=== PATIENT | female | born 1955 | race Caucasian/White ===

== ENCOUNTER 2018-03-13 11:21 | Emergency (ER) | payer BC, OTHER ==
[2018-03-13 12:04] LABS: Absolute Lymphocytes (CBC) 2.4 K/uL (0.7-4.9); Absolute Monocytes 0.5 K/uL (0.1-1.3); Absolute Neutrophil 4.3 K/uL (1.8-8.0); Basophils % 1.2 % (0-1.3); Eosinophils % 2.1 % (0-4.4); Hematocrit 41.4 % (36.0-45.0); Lymphocytes % 31.9 % (15.3-44.8); MCH 32.6 pg (27.0-35.0); MCV 96.6 fL (80-100); MPV 9.9 fL (7.6-11.3); Monocytes % 7.2 % (3.3-12.3); RBC Red Blood Cell Count 4.29 M/uL (3.86-4.86)
--- NOTE | 2018-03-13 12:08 | RAD REPORT ---
EXAM DESCRIPTION: CT - Ct Stroke Brain Wo Cont - 03/13/2018 11:49 am CLINICAL HISTORY: Left-sided numbness/weakness COMPARISON: None. TECHNIQUE: Computed axial tomography of the head was obtained. IV contrast was not requested. All CT scans are performed using dose optimization technique as appropriate and may include automated exposure control or mA/KV adjustment according to patient size. FINDINGS: An intracranial bleed is not seen . The ventricles are normal in caliber. No extra-axial fluid collection is noted. A 5 millimeter low-density area is present within the region of the inferior right basal ganglia. Fluid within the sinuses/ mastoids is not seen. IMPRESSION: 5 millimeter low-density area within the region of the inferior right basal ganglia comp atible with an acute/ subacute infarct. The exam was discussed with Clovis Dillard in the emergency room approximately 12:50 p.m. March 13 8
[2018-03-13 12:13] LABS: Protime INR 1.06
--- NOTE | 2018-03-13 12:24 | RAD REPORT ---
EXAM DESCRIPTION: Jeff Single View03/13/2018 12:15 pm CLINICAL HISTORY: Code stroke/CVA COMPARISON: none FINDINGS: The lungs appear clear of acute infiltrate. The heart is normal size IMPRESSION: No acute abnormalities displayed
[2018-03-13 12:29] LABS: Albumin 4.4 g/dL (3.4-5.0); Bilirubin Direct 0.2 mg/dL (0-0.2); Bilirubin Total 0.6 mg/dL (0.2-1.0); Magnesium 2.2 mg/dL (1.8-2.4); Potassium 3.6 mmol/L (3.5-5.1); Protein, Total 7.7 g/dL (6.4-8.2)
--- NOTE | 2018-03-13 12:56 | RAD REPORT ---
EXAM DESCRIPTION: MRI - Brain Wo Cont - 03/13/2018 12:46 pm CLINICAL HISTORY: Left-sided numbness/weakness COMPARISON: March [address] TECHNIQUE: Axial, sagittal, and coronal magnetic images of the brain were obtained. Contrast was not requested FINDINGS: Small area of increased signal within the inferior right basal ganglia likely either repre sents an old lacunar infarct her prominent Virchow-Jan space. A few small areas increased signal within deep and subcortical white matter likely represent ischemic changes secondary to small vessel disease Diffusion-weighted/ADC mapping does not reveal evidence of acute infarction. The ventricles are normal caliber. An extra-axial fluid collection is not present Fluid within the sinuses/mastoids is not seen. A mucus retention cyst is present within the left maxi llary sinus IMPRESSION: No acute intracranial abnormality is noted.
[2018-03-13 12:58] LABS: Urine Blood NEGATIVE (NEG); Urine Glucose NEGATIVE (NEG); Urine Protein NEGATIVE (NEG); Urine Specific Gravity 1.015 (1.005-1.030); Urine pH 7.5 (5.0-7.0)
[2018-03-13] MEDS ORDERED: LORazepam 2 MG/ML VIAL ONE (13:21)
[2018-03-13] MEDS ORDERED: METOPROLOL TARTRATE 5 MG/5 ML INJ IV ONE (13:26)
[2018-03-13] MEDS ORDERED: LABETALOL 20 MG/4ML SYRINGE IV ONE (13:28)
--- NOTE | 2018-03-13 13:39 | EKG ---
Test Date: 2018-03-13 Test Time: 12:10:29 Licensed Occupational Therapy Assistant: CHUNG MEASUREMENT RESULTS: Intervals: Rate: 86 DE: 230 QRSD: 160 QT: 410 QTc: 490 [place]: P: 44 DE: 230 QRS: -49 T: -23 INTERPRETIVE STATEMENTS: Sinus rhythm with 1st degree AV block Right bundle branch block Left anterior fascicular block Bifascicular block Minimal voltage criteria for LVH, may be normal variant Abnormal ECG No previous ECG available for comparison Electronically Signed On 03-13-18 13:38:15 CDT by David Sanchez
--- NOTE | 2018-03-13 14:04 | ER ---
Nurse's Notes [facility] Name: Mohini Ramirez Age: 62 yrs Sex: Female : 1955 Arrival Date: 03/13/2018 Time: 11:25 Bed 16 Private MD: Leydi Garcia Diagnosis: Hypertensive Emergency Presentation: 03/13 11:25 Presenting complaint: Patient states: i had a stroke episode 3 weeks ago, with numbness hj and weakness on L arm; we didn't do TPA because we didn't know the time i had the symptome; today, i felt lightheaded and started having numbness and tingling on L arm, no weakness; both ears are on fire; this started about 30 mins ago; reports chest pain and palpitations;. Transition of care: patient was not received from another setting of care. Onset of symptoms was March 13, 2018 at 11:00. Risk Assessment: Do you want to hurt yourself or someone else? Patient reports no desire to harm self or others. Initial Sepsis Screen: Does the patient meet any 2 criteria? No. Patient's initial sepsis screen is negative. Does the patient have a suspected source of infection? No. Patient's initial sepsis screen is negative. Care prior to arrival: None. 11:25 Method Of Arrival: Ambulatory 11:25 Acuity: BALJIT 3 hj Triage Assessment: 11:30 General: Appears in no apparent distress. uncomfortable, Behavior is calm, cooperative, hj appropriate for age. Pain: Denies pain. Historical: - Allergies: 11:30 Sulfa (Sulfonamide Antibiotics); hj - Home Meds: 11:30 Plavix 75 mg Oral tab 1 tab once daily [Active]; Lipitor 40 mg Oral tab 1 tab once hj daily [Active]; aspirin 81 mg Oral TbEC 1 tab once daily [Active]; levothyroxine 25 mcg tab 1 tab once daily [Active]; - PMHx: 11:30 CVA; Hypothyroidism; Hyperlipidemia; hj - PSHx: 11:30 Knee surgery; hj - Immunization history:: Adult Immunizations up to date. - Social history:: Smoking status: Patient/guardian denies using tobacco, Patient/guardian denies using alcohol. - Ebola Screening: : Patient negative for fever greater than or equal to 101.5 degrees Fahrenheit, and additional compatible Ebola Virus Disease symptoms Patient denies exposure to infectious person Patient denies travel to an Ebola-affected area in the 21 days before illness onset. Screenin:31 Abuse screen: Denies threats or abuse. Denies injuries from another. Nutritional hj screening: No deficits noted. Tuberculosis screening: No symptoms or risk factors identified. Fall Risk None identified. 11:48 The patient has not been NPO before screening. The patient is alert, able to follow la1 commands. The patient does not exhibit slurred or garbled speech The patient is not exhibiting difficulty speaking. The patient does not exhibit difficulty understanding words. The patient is able to swallow own secretions with no drooling or need for suction. Patient tolerated one teaspoon of water. No drooling, immediate coughing, gurgling, or clearing of the throat was noted. The patient tolerated 90mL of water. No drooling, immediate coughing, gurgling, or clearing of the throat was noted. The patient passed the bedside swallow screening. Oral medications may be given as ordered. Contact Physician for further diet orders. Provider notified of bedside swallow screening results: Anmol HERNANDEZ. Assessment: 11:38 Reassessment: pt in CT. la1 11:49 General: Appears in no apparent distress. comfortable, Behavior is cooperative, la1 anxious. Pain: Denies pain. Neuro: Level of Consciousness is awake, alert, obeys commands, Oriented to person, place, time, situation, Appropriate for age Database Manager are equal bilaterally Moves all extremities. Full function. Cardiovascular: Heart tones S1 S2 present Capillary refill < 3 seconds Patient's skin is warm and dry. Respiratory: Airway is patent Respiratory effort is even, unlabored, Respiratory pattern is regular, symmetrical, Breath sounds are clear bilaterally. GI: No signs and/or symptoms were reported involving the gastrointestinal system. : No signs and/or symptoms were reported regarding the genitourinary system. Musculoskeletal: Circulation, motion, and sensation intact. Capillary refill < 3 seconds, Range of motion: intact in all extremities. 12:18 Reassessment: Patient appears in no apparent distress at this time. No changes from la1 previously documented assessment. Patient and/or family updated on plan of care and expected duration. Pain level reassessed. 13:37 Reassessment: Patient appears in no apparent distress at this time. No changes from la1 previously documented assessment. Patient and/or family updated on plan of care and expected duration. Pain level reassessed. 14:08 Reassessment: Patient appears in no apparent distress at this time. No changes from la1 previously documented assessment. Patient and/or family updated on plan of care and expected duration. Pain level reassessed. Vital Signs: 11:31 BP 181 / 90; Pulse 108; Resp 18; Temp 98.1(O); Pulse Ox 100% on R/A; Weight 79.38 kg; hj Height 5 ft. 7 in. (170.18 cm); Pain 0/10; 12:18 BP 156 / 70; Pulse 85; Resp 16; Pulse Ox 100% on R/A; la1 13:36 BP 156 / 72; Pulse 75; Resp 19; Pulse Ox 100% on R/A; la1 14:08 BP 151 / 74; Pulse 74; Resp 19; Pulse Ox 100% on R/A; la1 11:31 Body Mass Index 27.41 (79.38 kg, 170.18 cm) hj NIH Stroke Scale Scores: 11:30 NIHSS Score: 0 jr8 11:47 NIHSS Score: 0 la1 ED Course: 11:25 Patient arrived in ED. sb2 11:25 Leydi Garcia MD is Private Physician. sb2 11:28 Triage completed. hj 11:31 Arm band placed on left wrist. hj 11:31 Patient has correct armband on for positive identification. Placed in gown. Bed in low hj position. Call light in reach. Side rails up X 1. Adult w/ patient. 11:33 [facility] jr8 11:33 Ferdinand Gaona MD is Attending Physician. jr8 11:36 Armen Gutierrez, GISELL is Primary Nurse. la1 11:47 No provider procedures requiring assistance completed. Inserted saline lock: 22 gauge la1 in left antecubital area, using aseptic technique. Blood collected. 11:49 CT Stroke Brain w/o Contrast In Process Unspecified. EDMS 12:15 Stroke CXR 1 View In Process Unspecified. EDMS 12:30 EKG done, by technology engineer. reviewed by Anmol HERNANDEZ. at1 12:34 Patient moved to MRI via wheelchair. ka 12:36 MRI - Brain Wo Cont In Process Unspecified. EDMS 12:58 MRI completed. Patient tolerated well. Patient moved back from MRI. em2 14:22 IV discontinued, intact, bleeding controlled, No redness/swelling at site. Pressure la1 dressing applied. Administered Medications: 13:36 Drug: Ativan 0.5 mg Route: IVP; Site: left antecubital; la1 14:09 Follow up: Response: No adverse reaction la1 13:37 Drug: Labetalol 5 mg Route: IVP; Infused Over: 2 mins; Site: left antecubital; la1 14:09 Follow up: Response: No adverse reaction; Blood pressure is lowered la1 Point of Care Testing: Blood Glucose: 11:42 Blood Glucose: 111 mg/dL; la1 Ranges: Outcome: 14:04 Discharge ordered by jrBrian 14:22 Discharged to home ambulatory. la1 14:22 Condition: stable 14:22 Discharge instructions given to patient, Instructed on discharge instructions, follow up and referral plans. Demonstrated understanding of instructions, follow-up care. 14:22 Patient left the ED. la1 NIH Stroke Scale - NIH Stroke Score Date: 03/13/2018 Time: 11:30 Total Score = 0 1a. Level of Consciousness (LOC) - 0(Alert) 1b. Level of Consciousness (LOC) (Year \T\ Age) - 0(Both) 1c. LOC Commands (Open \T\ Closes Eyes/Cable Television Access Coordinator) - 0(Both) 2. Best Gaze (Lateral Gaze Paresis) - 0(Normal) 3. Visual Field Loss - 0(No visual loss) 4. Facial Palsy - 0(Normal) 5a. Left Arm: Motor (10-second hold) - 0(No drift) 5b. Right Arm: Motor (10-second hold) - 0(No drift) 6a. Left Leg: Motor (5-second hold - always test supine) - 0(No drift) 6b. Right Leg: Motor (5-second hold - always test supine) - 0(No drift) 7. Limb Ataxia (finger/nose \T\ heel/malhotra - test with eyes open) - 0(Absent) 8. Sensory Loss (pinprick arms/legs/face) - 0(Normal) 9. Best Language: Aphasia (description/naming/reading) - 0(No aphasia) 10. Dysarthria (speech clarity - read or repeat words) - 0(Normal) 11. Extinction and Inattention (visual/tactile/auditory/spatial/personal) - 0(No abnormality) Initials: jr8 NIH Stroke Scale - NIH Stroke Score Date: 03/13/2018 Time: 11:47 Total Score = 0 1a. Level of Consciousness (LOC) - 0(Alert) 1b. Level of Consciousness (LOC) (Year \T\ Age) - 0(Both) 1c. LOC Commands (Open \T\ Closes Eyes/Cable Television Access Coordinator) - 0(Both) 2. Best Gaze (Lateral Gaze Paresis) - 0(Normal) 3. Visual Field Loss - 0(No visual loss) 4. Facial Palsy - 0(Normal) 5a. Left Arm: Motor (10-second hold) - 0(No drift) 5b. Right Arm: Motor (10-second hold) - 0(No drift) 6a. Left Leg: Motor (5-second hold - always test supine) - 0(No drift) 6b. Right Leg: Motor (5-second hold - always test supine) - 0(No drift) 7. Limb Ataxia (finger/nose \T\ heel/malhotra - test with eyes open) - 0(Absent) 8. Sensory Loss (pinprick arms/legs/face) - 0(Normal) 9. Best Language: Aphasia (description/naming/reading) - 0(No aphasia) 10. Dysarthria (speech clarity - read or repeat words) - 0(Normal) 11. Extinction and Inattention (visual/tactile/auditory/spatial/personal) - 0(No abnormality) Initials: la1 Signatures: Dispatcher [employer] EDMS Anmol Arzate PA PA jr8 Tyshawn Marcano em2 Kay schreiber, aircraft captain EKG Tat1 Armen Gutierrez RN RN la1 Matthew Brooks, Yesenia Tariq RN, Sheri sb2
--- NOTE | 2018-03-13 14:04 | EDPHYS ---
Physician Documentation [facility] Name: Mohini Ramirez Age: 62 yrs Sex: Female : 1955 Arrival Date: 03/13/2018 Time: 11:25 Bed 16 Private MD: Leydi Garcia ED Physician Ferdinand Gaona HPI: 03/13 11:30 This 62 yrs old Female presents to ER via Ambulatory with complaints of S/S jr8 of Possible Stroke. 11:30 The patient's problem is reported as paresthesias, in left upper extremity. Onset: The jr8 symptoms/episode began/occurred at 11:00. Duration: This was a single incident. Context: occurred at a store. The symptoms are alleviated by nothing. The symptoms are aggravated by nothing. Associated signs and symptoms: Pertinent positives: dizziness. Severity of symptoms: At their worst the symptoms were moderate in the emergency department the symptoms have improved. Patient's baseline: Neuro: alert and fully oriented, Motor: no deficits, Ambulation: walks without assistance, Speech: normal. The patient has experienced a previous episode. The patient has been recently seen by a physician:. Patient stated that she had confirmed stroke 3 weeks ago. Was seen at [facility]. Had recovered very well from incident. While driving started to feel dizzy and had left arm numbness which she had the last time. Stopped at store to see if she would feel better but did not so came straight to ED . Historical: - Allergies: 11:30 Sulfa (Sulfonamide Antibiotics); hj - Home Meds: 11:30 Plavix 75 mg Oral tab 1 tab once daily [Active]; Lipitor 40 mg Oral tab 1 tab once hj daily [Active]; aspirin 81 mg Oral TbEC 1 tab once daily [Active]; levothyroxine 25 mcg tab 1 tab once daily [Active]; - PMHx: 11:30 CVA; Hypothyroidism; Hyperlipidemia; hj - PSHx: 11:30 Knee surgery; hj - Immunization history:: Adult Immunizations up to date. - Social history:: Smoking status: Patient/guardian denies using tobacco, Patient/guardian denies using alcohol. - Ebola Screening: : Patient negative for fever greater than or equal to 101.5 degrees Fahrenheit, and additional compatible Ebola Virus Disease symptoms Patient denies exposure to infectious person Patient denies travel to an Ebola-affected area in the 21 days before illness onset. ROS: 11:30 Eyes: Negative for injury, pain, redness, and discharge, ENT: Negative for injury, jr8 pain, and discharge, Neck: Negative for injury, pain, and swelling, Cardiovascular: Negative for chest pain, palpitations, and edema, Respiratory: Negative for shortness of breath, cough, wheezing, and pleuritic chest pain, Abdomen/GI: Negative for abdominal pain, nausea, vomiting, diarrhea, and constipation, Back: Negative for injury and pain, MS/Extremity: Negative for injury and deformity, Skin: Negative for injury, rash, and discoloration. 11:30 Neuro: Positive for dizziness, numbness. Exam: 11:30 Radiologist reports: subacute noted on CT. No new acute findings jr8 11:30 Eyes: Pupils equal round and reactive to light, extra-ocular motions intact. Lids and lashes normal. Conjunctiva and sclera are non-icteric and not injected. Cornea within normal limits. Periorbital areas with no swelling, redness, or edema. ENT: Nares patent. No nasal discharge, no septal abnormalities noted. Tympanic membranes are normal and external auditory canals are clear. Oropharynx with no redness, swelling, or masses, exudates, or evidence of obstruction, uvula midline. Mucous membranes moist. Neck: Trachea midline, no thyromegaly or masses palpated, and no cervical lymphadenopathy. Supple, full range of motion without nuchal rigidity, or vertebral point tenderness. No Meningismus. Chest/axilla: Normal chest wall appearance and motion. Nontender with no deformity. No lesions are appreciated. Cardiovascular: Regular rate and rhythm with a normal S1 and S2. No gallops, murmurs, or rubs. Normal PMI, no JVD. No pulse deficits. Respiratory: Lungs have equal breath sounds bilaterally, clear to auscultation and percussion. No rales, rhonchi or wheezes noted. No increased work of breathing, no retractions or nasal flaring. Abdomen/GI: Soft, non-tender, with normal bowel sounds. No distension or tympany. No guarding or rebound. No evidence of tenderness throughout. Back: No spinal tenderness. No costovertebral tenderness. Full range of motion. Skin: Warm, dry with normal turgor. Normal color with no rashes, no lesions, and no evidence of cellulitis. MS/ Extremity: Pulses equal, no cyanosis. Neurovascular intact. Full, normal range of motion. 11:30 Neuro: Orientation: to person, place \T\ time. Mentation: is normal, Memory: is normal, immediate memory is intact, recent memory is intact, remote memory is intact, Cranial nerves: CN I not tested, CN II- XII are normal as tested, visual zee are intact. extraocular movements are intact, Facial palsy and sensory deficits are absent. Nystagmus is absent. Speech is clear and appropriate. Tongue strength is normal, Cerebellar function: normal finger to nose testing, heel to malhotra testing is normal, Motor: moves all fours, strength is 5/5 in all extremities, Sensation: tingling, that is mild, of the left face, Gait: not tested. seizure activity, is not displayed by the patient, Abnormal movements: there are no abnormal movements. Vital Signs: 11:31 BP 181 / 90; Pulse 108; Resp 18; Temp 98.1(O); Pulse Ox 100% on R/A; Weight 79.38 kg; Height 5 ft. 7 in. (170.18 cm); Pain 0/10; 12:18 BP 156 / 70; Pulse 85; Resp 16; Pulse Ox 100% on R/A; la1 13:36 BP 156 / 72; Pulse 75; Resp 19; Pulse Ox 100% on R/A; la1 14:08 BP 151 / 74; Pulse 74; Resp 19; Pulse Ox 100% on R/A; la1 11:31 Body Mass Index 27.41 (79.38 kg, 170.18 cm) NIH Stroke Scale Scores: 11:30 NIHSS Score: 0 jr8 11:47 NIHSS Score: 0 la1 MDM: 11:34 Patient medically screened. jr8 12:15 ED course: Patient with improvement of symptoms. Recent subacute stroke on CT. Patient jr8 not a candidate for tPA. . 14:00 Data reviewed: vital signs, nurses notes, lab test result(s), EKG, radiologic studies, jr8 CT scan, MRI, plain films. Data interpreted: Pulse oximetry: on room air is 100 %. Interpretation: normal. Counseling: I had a detailed discussion with the patient and/or guardian regarding: the historical points, exam findings, and any diagnostic results supporting the discharge/admit diagnosis, lab results, radiology results, the need for outpatient follow up, a neurologist, to return to the emergency department if symptoms worsen or persist or if there are any questions or concerns that arise at home. ED course: Patient has symptom resolution after being medicated. Differential TIA vs hypertensive emergency. No acute stroke on CT or MRI. Patient on ASA, Plavix, and Statin therapy and has been sikh with taking her medications. Patient has f/u with her neurologist on Friday. Wants to go home. Discussed risks with patient but still wants to f/u. Will d/c home with return precautions. I have also discussed with patient that she needs to check her BP twice a day as well since it was markedly elevated and she has no BP history . 03/13 11:40 Order name: Hepatic Function; Complete Time: 12:03/13 11:40 Order name: Troponin (emerg Dept Use Only); Complete Time: 12:03/13 11:40 Order name: Magnesium; Complete Time: 12:03/13 11:40 Order name: Basic Metabolic Panel; Complete Time: 12:03/13 11:40 Order name: CBC with Diff; Complete Time: 12:03/13 11:40 Order name: Protime (+inr); Complete Time: 12:03/13 11:40 Order name: Ptt, Activated; Complete Time: 12:03/13 11:40 Order name: CT Stroke Brain w/o Contrast; Complete Time: 12:16 03/13 11:40 Order name: Stroke CXR 1 View; Complete Time: 12:31 03/13 11:40 Order name: EKG; Complete Time: 11:40 03/13 12:15 Order name: MRI - Brain Wo Cont; Complete Time: 12:57 ag 03/13 12:36 Order name: Urine Dipstick--Ancillary (enter results); Complete Time: 13:10 ag 03/13 11:40 Order name: Accucheck; Complete Time: 11:50 03/13 11:40 Order name: Cardiac monitoring; Complete Time: 11:50 03/13 11:40 Order name: EKG - Nurse/Tech; Complete Time: 11:50 03/13 11:40 Order name: IV Saline Lock; Complete Time: 11:50 03/13 11:40 Order name: Labs collected and sent; Complete Time: 03/13 11:40 Order name: NPO; Complete Time: 03/13 11:40 Order name: O2 Per Protocol; Complete Time: 11:03/13 11:40 Order name: O2 Sat Monitoring; Complete Time: 03/13 11:40 Order name: Stroke Swallow Screen; Complete Time: :03/13 11:40 Order name: Urine Dipstick-Ancillary (obtain specimen); Complete Time: 12:31 Administered Medications: 13:36 Drug: Ativan 0.5 mg Route: IVP; Site: left antecubital; la1 14:09 Follow up: Response: No adverse reaction la1 13:37 Drug: Labetalol 5 mg Route: IVP; Infused Over: 2 mins; Site: left antecubital; la1 14:09 Follow up: Response: No adverse reaction; Blood pressure is lowered la1 Point of Care Testing: Blood Glucose: 11:42 Blood Glucose: 111 mg/dL; la1 Ranges: Critical Glucose Levels:Adult <50 mg/dl or >400 mg/dl <40 mg/dl or >180 mg/dl Disposition: 17:35 Co-signature as Attending Physician, Ferdinand Gaona MD Available for consultation at ps1 all times. . Disposition: 03/13/18 14:04 Discharged to Home. Impression: Hypertensive Emergency . - Condition is Stable. - Discharge Instructions: Hypertension. - Medication Reconciliation Form, Thank You Letter, Antibiotic Education, Prescription Opioid Use form. - Follow up: Private Physician; When: 1 - 2 days; Reason: Recheck today's complaints, Continuance of care, Re-evaluation by your physician. - Problem is new. - Symptoms are resolved. NIH Stroke Scale - NIH Stroke Score Date: 03/13/2018 Time: 11:30 Total Score = 0 1a. Level of Consciousness (LOC) - 0(Alert) 1b. Level of Consciousness (LOC) (Year \T\ Age) - 0(Both) 1c. LOC Commands (Open \T\ Closes Eyes/Strategic Planner) - 0(Both) 2. Best Gaze (Lateral Gaze Paresis) - 0(Normal) 3. Visual Field Loss - 0(No visual loss) 4. Facial Palsy - 0(Normal) 5a. Left Arm: Motor (10-second hold) - 0(No drift) 5b. Right Arm: Motor (10-second hold) - 0(No drift) 6a. Left Leg: Motor (5-second hold - always test supine) - 0(No drift) 6b. Right Leg: Motor (5-second hold - always test supine) - 0(No drift) 7. Limb Ataxia (finger/nose \T\ heel/malhotra - test with eyes open) - 0(Absent) 8. Sensory Loss (pinprick arms/legs/face) - 0(Normal) 9. Best Language: Aphasia (description/naming/reading) - 0(No aphasia) 10. Dysarthria (speech clarity - read or repeat words) - 0(Normal) 11. Extinction and Inattention (visual/tactile/auditory/spatial/personal) - 0(No abnormality) Initials: jr8 NIH Stroke Scale - NIH Stroke Score Date: 03/13/2018 Time: 11:47 Total Score = 0 1a. Level of Consciousness (LOC) - 0(Alert) 1b. Level of Consciousness (LOC) (Year \T\ Age) - 0(Both) 1c. LOC Commands (Open \T\ Closes Eyes/Strategic Planner) - 0(Both) 2. Best Gaze (Lateral Gaze Paresis) - 0(Normal) 3. Visual Field Loss - 0(No visual loss) 4. Facial Palsy - 0(Normal) 5a. Left Arm: Motor (10-second hold) - 0(No drift) 5b. Right Arm: Motor (10-second hold) - 0(No drift) 6a. Left Leg: Motor (5-second hold - always test supine) - 0(No drift) 6b. Right Leg: Motor (5-second hold - always test supine) - 0(No drift) 7. Limb Ataxia (finger/nose \T\ heel/malhotra - test with eyes open) - 0(Absent) 8. Sensory Loss (pinprick arms/legs/face) - 0(Normal) 9. Best Language: Aphasia (description/naming/reading) - 0(No aphasia) 10. Dysarthria (speech clarity - read or repeat words) - 0(Normal) 11. Extinction and Inattention (visual/tactile/auditory/spatial/personal) - 0(No abnormality) Initials: la1 Signatures: Dispatcher [employer] EDMS Anmol Arzate PA PA jr8 Armen Gutierrez RN RN la1 Matthew Brooks RN RN Ferdinand Kirby MD MD ps1 Corrections: (The following items were deleted from the chart) 14:04 14:00 ED course: Patient has symptom resolution after being medicated. jr8 Differential TIA vs hypertensive emergency. No acute stroke on CT or MRI. Patient on ASA, Plavix, and Statin therapy and has been sikh with taking her medications. Patient has f/u with her neurologist on Friday. Wants to go home. Discussed risks with patient but still wants to f/u. Will d/c home with return precautions . jr8 14:22 14:04 03/13/2018 14:04 Discharged to Home. Impression: Hypertensive Emergency . la1 Condition is Stable. Forms are Medication Reconciliation Form, Thank You Letter, Antibiotic Education, Prescription Opioid Use. Follow up: Private Physician; When: 1 - 2 days; Reason: Recheck today's complaints, Continuance of care, Re-evaluation by your physician. Problem is new. Symptoms are resolved. jr8
== END 2018-03-13 14:22 | disposition home or self-care (01) ==
LOC: ER 11:21
DX: I16.1 Hypertensive emergency (principal); E78.5 Hyperlipidemia, unspecified; E03.9 Hypothyroidism, unspecified; Z88.2 Allergy status to sulfonamides; Z79.01 Long term (current) use of anticoagulants; Z86.73 Personal history of transient ischemic attack (TIA), and cerebral infarction without residual deficits
CPT/HCPCS: 36415; 70450; 70551; 71045; 80048; 80076; 81003; 82962; 83735; 84484; 85025; 85610; 85730; 93005; 96374; 96375; 99284

== ENCOUNTER 2019-01-12 05:49 | Observation (INO) | payer OTHER, MEDICARE ==
--- OUTSIDE RECORDS SUMMARY | 2019-01-12 05:52 | XMS REPORT ---
:1955 [facility] Address [address] [place] [address] [address] [place] [address] Care Team Providers Name Role Phone Unavailable Unavailable Unavailable Problems This patient has no known problems. Allergies, Adverse Reactions, Alerts This patient has no known allergies or adverse reactions. Medications This patient has no known medications.
[2019-01-12 06:31] LABS: Absolute Lymphocytes (CBC) 2.7 K/uL (0.7-4.9); Absolute Monocytes 0.7 K/uL (0.1-1.3); Absolute Neutrophil 4.1 K/uL (1.8-8.0); Basophils % 1.1 % (0-1.3); Hematocrit 44.2 % (36.0-45.0); Lymphocytes % 34.6 % (15.3-44.8); MPV 9.4 fL (7.6-11.3); Monocytes % 9.4 % (3.3-12.3); RBC Red Blood Cell Count 4.52 M/uL (3.86-4.86)
[2019-01-12] MEDS ORDERED: METOPROLOL TARTRATE 5 MG/5 ML INJ IV ONE (06:37)
[2019-01-12] MEDS ORDERED: ENOXAPARIN 80 MG/0.8 ML SQ ONE (06:37)
[2019-01-12] MEDS ORDERED: NA CHLORIDE 0.9% 1,000 ML ONE (06:37)
[2019-01-12 06:47] LABS: Protime INR 0.86
[2019-01-12 07:15] LABS: ALT/SGPT 65 U/L (12-78); AST/SGOT 49 U/L (15-37); Albumin 3.8 g/dL (3.4-5.0); Alkaline Phosphatase 79 U/L (45-117); BUN Blood Urea Nitrogen 25 mg/dL (7-18); Bicarbonate 25 mmol/L (21-32); Bilirubin Direct 0.1 mg/dL (0-0.2); Bilirubin Total 0.3 mg/dL (0.2-1.0); Glucose Level 94 mg/dL (74-106); Magnesium 2.1 mg/dL (1.8-2.4); NT PRO-BNP 322 pg/mL (<125); Potassium 4.2 mmol/L (3.5-5.1); Protein, Total 6.9 g/dL (6.4-8.2); Sodium Level 142 mmol/L (136-145); Troponin (Emerg Dept Use Only) < 0.02 ng/mL (0.0-0.045)
[2019-01-12] MEDS ORDERED: ASPIRIN 81 MG CHEWABLE TABLET ONE (07:21)
--- NOTE | 2019-01-12 08:19 | RAD REPORT ---
EXAM DESCRIPTION: Jeff Single View01/12/2019 6:37 am CLINICAL HISTORY: Chest pain COMPARISON: 2016 FINDINGS: The lungs appear clear of acute infiltrate. The heart is normal size IMPRESSION: No acute abnormalities displayed
--- NOTE | 2019-01-12 08:40 | EDPHYS ---
Physician Documentation [facility] Name: Mohini Ramirez Age: 63 yrs Sex: Female : 1955 Arrival Date: 01/12/2019 Time: 05:53 Bed 4 Private MD: ED Physician Arturo López HPI: 01/12 06:21 This 63 yrs old Female presents to ER via Wheelchair with complaints of RAPID ma2 HEAR RATE, B/P. 06:21 Onset: gradually, 1 hour(s) ago. Associated signs and symptoms: Pertinent negatives: ma2 cough, headache, lower extremity swelling, syncope. Severity of pain: At its worst the pain was mild in the emergency department the pain is unchanged. The patient has not experienced similar symptoms in the past. Historical: - Allergies: 06:07 Sulfa (Sulfonamide Antibiotics); ed1 - PMHx: 06:07 CVA; Hyperlipidemia; Hypothyroidism; ed1 - PSHx: 06:07 Knee surgery; ed1 - Immunization history:: Adult Immunizations up to date. - Social history:: Smoking status: Patient/guardian denies using tobacco, Patient/guardian denies using alcohol, street drugs, The patient lives. - Ebola Screening: : Patient negative for fever greater than or equal to 101.5 degrees Fahrenheit, and additional compatible Ebola Virus Disease symptoms Patient denies exposure to infectious person Patient denies travel to an Ebola-affected area in the 21 days before illness onset No symptoms or risks identified at this time. - Family history:: not pertinent. ROS: 06:21 Constitutional: Negative for fever, chills, and weight loss, Cardiovascular: Negative ma2 for chest pain, palpitations, and edema. 06:21 Respiratory: Negative for shortness of breath, cough, wheezing, and pleuritic chest pain, Abdomen/GI: Negative for abdominal pain, nausea, diarrhea, and constipation, Back: Negative for injury and pain, MS/Extremity: Negative for injury and deformity, Neuro: Negative for headache, weakness, numbness, tingling, and seizure, Psych: Negative for depression, anxiety, suicide ideation, homicidal ideation, and hallucinations. 06:21 Cardiovascular: Positive for chest pain, palpitations, Negative for edema, palpitations, paroxysmal nocturnal dyspnea. Exam: 06:21 Constitutional: This is a well developed, well nourished patient who is awake, alert, ma2 and in no acute distress. Chest/axilla: Normal chest wall appearance and motion. Nontender with no deformity. No lesions are appreciated. Respiratory: Lungs have equal breath sounds bilaterally, clear to auscultation and percussion. No rales, rhonchi or wheezes noted. No increased work of breathing, no retractions or nasal flaring. Abdomen/GI: Soft, non-tender, with normal bowel sounds. No distension or tympany. No guarding or rebound. No evidence of tenderness throughout. Skin: Warm, dry with normal turgor. Normal color with no rashes, no lesions, and no evidence of cellulitis. MS/ Extremity: Pulses equal, no cyanosis. Neurovascular intact. Full, normal range of motion. Neuro: Awake and alert, GCS 15, oriented to person, place, time, and situation. Cranial nerves II-XII grossly intact. Motor strength 5/5 in all extremities. Sensory grossly intact. Cerebellar exam normal. Normal gait. 06:21 Cardiovascular: Rate: tachycardic, actual rate is 130 bpm, Rhythm: irregularly irregular, Heart sounds: normal. Vital Signs: 06:07 BP 173 / 110; Pulse 140; Resp 18; Temp 97.8(TE); Pulse Ox 100% on R/A; Weight 66.68 kg ed1 (R); Height 5 ft. 7 in. (170.18 cm) (R); Pain 5/10; 06:48 BP 137 / 94; Pulse 84; Resp 14; Temp 98.2(TE); Pulse Ox 99% on R/A; Pain 4/10; ed1 07:13 BP 150 / 85; Pulse 70; ed1 07:34 BP 141 / 76; Pulse 74; Resp 18; Pulse Ox 98% on R/A; hj 08:15 BP 122 / 83; Pulse 68; Resp 18; Pulse Ox 99% on 2 lpm NC; hj 09:52 BP 148 / 84; Pulse 74; Resp 14; Temp 97.6(TE); Pulse Ox 99% on R/A; mh5 06:07 Body Mass Index 23.02 (66.68 kg, 170.18 cm) ed1 MDM: 06:17 Patient medically screened. ma2 06:21 Differential diagnosis: abnormal EKG, anxiety, gastroesophageal reflux disease (GERD), ma2 stable angina, afib w rvr. 16:28 Data reviewed: vital signs, nurses notes. Data interpreted: monitoring tech: rhythm is tw4 normal sinus rhythm, Pulse oximetry: Interpretation: normal. Test interpretation: by ED physician or midlevel provider: ECG. Counseling: I had a detailed discussion with the patient and/or guardian regarding: the historical points, exam findings, and any diagnostic results supporting the discharge/admit diagnosis, lab results, radiology results. Physician consultation: Terry Cole DO regarding admission, patient's condition, and will see patient. 01/12 06:03 Order name: Basic Metabolic Panel; Complete Time: 07:23 mw2 01/12 06:03 Order name: CBC with Diff; Complete Time: 06:56 mw2 01/12 06:03 Order name: LFT's; Complete Time: 07:23 mw2 01/12 06:03 Order name: Magnesium; Complete Time: 07:23 mw2 01/12 06:03 Order name: NT PRO-BNP; Complete Time: 07:23 mw2 01/12 06:03 Order name: PT-INR; Complete Time: 06:56 mw2 01/12 06:03 Order name: Troponin (emerg Dept Use Only); Complete Time: 07:23 mw2 01/12 06:03 Order name: XRAY Chest (1 view) mw2 01/12 06:03 Order name: EKG; Complete Time: 06:05 mw2 01/12 06:19 Order name: TSH; Complete Time: 07:23 fc 01/12 06:03 Order name: Cardiac monitoring; Complete Time: 06:16 mw2 01/12 06:03 Order name: EKG - Nurse/Tech; Complete Time: 06:16 mw2 01/12 06:03 Order name: IV Saline Lock; Complete Time: 06:16 mw2 01/12 06:03 Order name: Labs collected and sent; Complete Time: 06:16 mw2 01/12 06:03 Order name: O2 Per Protocol; Complete Time: 06:18 mw2 01/12 06:03 Order name: O2 Sat Monitoring; Complete Time: 06:18 mw2 Administered Medications: 06:25 Drug: Metoprolol 5 mg Route: IVP; Site: right antecubital; ed1 07:13 Follow up: BP 150 / 85; Pulse 70 bpm; Notified Dr. Viera of VS, no need to give other ed1 two doses of Lopressor. 06:32 Drug: NS 0.9% 1000 ml Route: IV; Rate: 1 bolus; Site: right antecubital; ed1 10:50 Follow up: IV Status: Completed infusion ae4 06:38 Drug: Lovenox 80 mg Route: Sub-Q; Site: right lower abdomen; ed1 07:09 Follow up: Response: No adverse reaction ed1 07:08 Drug: Aspirin Chewable Tablet 324 mg Route: PO; ed1 07:24 Follow up: Response: No adverse reaction Disposition: 01/12/19 08:39 Hospitalization ordered by Terry Cole for Inpatient Admission. Preliminary diagnosis is New onset atrial fibrillation. - Bed requested for Telemetry/MedSurg (Inpatient). - Status is Inpatient Admission. ae4 - Condition is Stable. - Problem is new. - Symptoms have improved. UTI on Admission? No Signatures: Dispatcher [employer] EDMS Anushka Juarez RN RN dw Clovis Benjamin PA PA jmm Riggs, Erika, RN RN ed1 Daljit Breen MD MD ma2 Arturo López MD MD tw4 Janet Boggs 2 Ambrocio Hassan RN RN ae4 Matthew Brooks RN Corrections: (The following items were deleted from the chart) 10:12 08:39 Hospitalization Ordered by Terry Cole DO for Inpatient Admission. Preliminary dw diagnosis is New onset atrial fibrillation. Bed requested for Telemetry/MedSurg (Inpatient). Status is Inpatient Admission. Condition is Stable. Problem is new. Symptoms have improved. UTI on Admission? No. tw4 10:50 10:12 01/12/2019 08:39 Hospitalization Ordered by Terry Cole DO for Inpatient ae4 Admission. Preliminary diagnosis is New onset atrial fibrillation. Bed requested for Telemetry/MedSurg (Inpatient). Status is Inpatient Admission. Condition is Stable. Problem is new. Symptoms have improved. UTI on Admission? No. dw
--- NOTE | 2019-01-12 08:40 | ER ---
Nurse's Notes [facility] Name: Mohini Ramirez Age: 63 yrs Sex: Female : 1955 Arrival Date: 01/12/2019 Time: 05:53 Bed 4 Private MD: Diagnosis: New onset atrial fibrillation Presentation: 01/12 06:04 Presenting complaint: Patient states: I started having a rapid heartbeat last night. ed1 Usually it goes away but it didn't this time. I am having pressure in my chest and it feels like heartburn. Transition of care: patient was not received from another setting of care. Onset of symptoms was January 11, 2019. Risk Assessment: Do you want to hurt yourself or someone else? Patient reports no desire to harm self or others. Initial Sepsis Screen: Does the patient meet any 2 criteria? No. Patient's initial sepsis screen is negative. Does the patient have a suspected source of infection? No. Patient's initial sepsis screen is negative. Care prior to arrival: None. 06:04 Method Of Arrival: Wheelchair ed1 06:04 Acuity: BALJIT 2 ed1 Triage Assessment: 06:07 General: Appears in no apparent distress. Behavior is calm, cooperative. Pain: ed1 Complains of pain in chest Pain does not radiate. Pain currently is 5 out of 10 on a pain scale. Quality of pain is described as tightness Pain began last night Is continuous. EENT: No signs and/or symptoms were reported regarding the EENT system. Neuro: Level of Consciousness is awake, alert, obeys commands, Oriented to person, place, time, situation. Cardiovascular: Reports chest pain, palpitations, Heart tones S1 S2 present. Respiratory: Airway is patent Respiratory effort is even, unlabored, Respiratory pattern is regular, symmetrical, Breath sounds are clear bilaterally. Denies cough, shortness of breath. GI: No signs and/or symptoms were reported involving the gastrointestinal system. : No signs and/or symptoms were reported regarding the genitourinary system. Derm: Skin is intact, is healthy with good turgor, Skin is dry, Skin is normal, Skin temperature is warm. Musculoskeletal: Circulation, motion, and sensation intact. Range of motion: intact in all extremities. Historical: - Allergies: 06:07 Sulfa (Sulfonamide Antibiotics); ed1 - PMHx: 06:07 CVA; Hyperlipidemia; Hypothyroidism; ed1 - PSHx: 06:07 Knee surgery; ed1 - Immunization history:: Adult Immunizations up to date. - Social history:: Smoking status: Patient/guardian denies using tobacco, Patient/guardian denies using alcohol, street drugs, The patient lives. - Ebola Screening: : Patient negative for fever greater than or equal to 101.5 degrees Fahrenheit, and additional compatible Ebola Virus Disease symptoms Patient denies exposure to infectious person Patient denies travel to an Ebola-affected area in the 21 days before illness onset No symptoms or risks identified at this time. - Family history:: not pertinent. Screenin:07 Abuse screen: Denies threats or abuse. Denies injuries from another. Nutritional ed1 screening: No deficits noted. Tuberculosis screening: No symptoms or risk factors identified. Fall Risk None identified. Assessment: 06:07 General: See triage assessment. ed1 06:48 Reassessment: Patient appears in no apparent distress at this time. Patient and/or ed1 family updated on plan of care and expected duration. Pain level reassessed. Patient is alert, oriented x 3, equal unlabored respirations, skin warm/dry/pink. Patient states feeling better. Patient states symptoms have improved. 07:00 General: Appears in no apparent distress. uncomfortable, Behavior is calm, cooperative, hj appropriate for age. Pain: Denies pain. Neuro: Level of Consciousness is awake, alert, obeys commands, Oriented to person, place, time, situation, Appropriate for age. Cardiovascular: Capillary refill < 3 seconds Patient's skin is warm and dry. Respiratory: Airway is patent Respiratory effort is even, unlabored, Respiratory pattern is regular, symmetrical. GI: No signs and/or symptoms were reported involving the gastrointestinal system. : No signs and/or symptoms were reported regarding the genitourinary system. EENT: No signs and/or symptoms were reported regarding the EENT system. Derm: No signs and/or symptoms reported regarding the dermatologic system. Musculoskeletal: No signs and/or symptoms reported regarding the musculoskeletal system. 07:32 Reassessment: awaiting for POC:. hj 08:16 Reassessment: Patient and/or family updated on plan of care and expected duration. Pain hj level reassessed. Patient is alert, oriented x 3, equal unlabored respirations, skin warm/dry/pink. awaiting POC: family in room;. 08:25 Reassessment: for admit;. hj 09:24 Reassessment: Patient appears in no apparent distress at this time. Patient and/or ae4 family updated on plan of care and expected duration. Pain level reassessed. Patient ambulated to bathroom with a steady gait. Patient states feeling better. 10:18 Reassessment: Called to give report to 2nd floor spoke to Rossy Blair states the ae4 receiving nurse will be TJ and has asked for 10 minutes and he will call. Will continue to monitor. Vital Signs: 06:07 BP 173 / 110; Pulse 140; Resp 18; Temp 97.8(TE); Pulse Ox 100% on R/A; Weight 66.68 kg ed1 (R); Height 5 ft. 7 in. (170.18 cm) (R); Pain 5/10; 06:48 BP 137 / 94; Pulse 84; Resp 14; Temp 98.2(TE); Pulse Ox 99% on R/A; Pain 4/10; ed1 07:13 BP 150 / 85; Pulse 70; ed1 07:34 BP 141 / 76; Pulse 74; Resp 18; Pulse Ox 98% on R/A; hj 08:15 BP 122 / 83; Pulse 68; Resp 18; Pulse Ox 99% on 2 lpm NC; hj 09:52 BP 148 / 84; Pulse 74; Resp 14; Temp 97.6(TE); Pulse Ox 99% on R/A; mh5 06:07 Body Mass Index 23.02 (66.68 kg, 170.18 cm) ed1 ED Course: 05:53 Patient arrived in ED. ag3 06:04 Demetria Oswald, RN is Primary Nurse. ed1 06:06 Triage completed. ed1 06:07 Arm band placed on. EKG completed in triage. Results shown to MD. ed1 06:07 Patient has correct armband on for positive identification. Placed in gown. Bed in low ed1 position. Call light in reach. Adult w/ patient. court recording monitor on. Pulse ox on. NIBP on. Warm blanket given. 06:10 Initial lab(s) drawn, by ED staff, sent to lab. Inserted saline lock: 20 gauge in right ed1 antecubital area, using aseptic technique. Blood collected. 06:17 Daljit Breen MD is Attending Physician. ma2 06:34 X-ray completed. Portable x-ray completed in exam room. Patient tolerated procedure kw well. 06:37 XRAY Chest (1 view) In Process Unspecified. EDMS 07:14 Report given to GISELL Castro. ed1 07:15 Matthew Brooks RN is Primary Nurse. 08:37 Attending Physician role handed off by Daljit Breen MD tw4 08:37 Arturo López MD is Attending Physician. tw4 08:38 Terry Cole DO is Hospitalizing Provider. tw4 10:34 No provider procedures requiring assistance completed. Patient admitted, IV remains in ae4 place. Administered Medications: 06:25 Drug: Metoprolol 5 mg Route: IVP; Site: right antecubital; ed1 07:13 Follow up: BP 150 / 85; Pulse 70 bpm; Notified Dr. Viera of VS, no need to give other ed1 two doses of Lopressor. 06:32 Drug: NS 0.9% 1000 ml Route: IV; Rate: 1 bolus; Site: right antecubital; ed1 10:50 Follow up: IV Status: Completed infusion ae4 06:38 Drug: Lovenox 80 mg Route: Sub-Q; Site: right lower abdomen; ed1 07:09 Follow up: Response: No adverse reaction ed1 07:08 Drug: Aspirin Chewable Tablet 324 mg Route: PO; ed1 07:24 Follow up: Response: No adverse reaction Intake: Outcome: 08:39 Decision to Hospitalize by Provider. tw4 10:35 Admitted to Med/surg ae4 10:35 Condition: stable 10:35 Instructed on the need for admit, Demonstrated understanding of 10:49 Admitted to Med/surg accompanied by tech, via wheelchair, room 201, with chart, Report ae4 called to GISELL MADSEN 10:50 Patient left the ED. ae4 Signatures: Dispatcher [employer] EDMS Demetria Oswald RN RN ed1 Polina Drake Henry, RN RN hj Martinez, Maria [facility] Daljit Breen MD MD [facility] Arturo López MD MD tw4 Bela Mcgovern [employer] Ambrocio Hassan, RN RN ae4 Corrections: (The following items were deleted from the chart) 07:02 06:07 BP 173 / 110; Pulse 90bpm; Resp 18bpm; Pulse Ox 100% RA; Temp 97.8F Temporal; ed1 66.68 kg Reported; Height 5 ft. 7 in. Reported; BMI: 23.0; Pain 5/10; ed1 07:14 06:33 BP 150 / 85; Pulse 70 bpm ed1 ed1 08:18 08:15 BP 122 / 83; Pulse 105bpm; Resp 18bpm; Pulse Ox 99% 2 lpm Nasal Cannula; hj hj 09:24 09:22 Reassessment: Patient appears in no apparent distress at this time. Patient hj and/or family updated on plan of care and expected duration. Pain level reassessed. Patient ambulated to bathroom with a steady gait, patient was updated on plan of care and wait time for room on the floor. hj
--- NOTE | 2019-01-12 10:14 | P.HP ---
Certification for Inpatient Patient admitted to: Observation With expected LOS: <2 Midnights Patient will require the following post-hospital care: None Practitioner: I am a practitioner with admitting privileges, knowledge of patient current condition, hospital course, and medical plan of care. Services: Services provided to patient in accordance with Admission requirements found in Title 42 Section 412.3 of the Code of Federal Regulations Patient History Date of Service: 01/12/19 Primary Care Provider: Dr. Matthew; Cardiology-Dr. Delatorre Reason for admission: Palpitations History of Present Illness: 63-year-old female presented to the emergency room with palpitations. She reported palpitations starting last night. It felt like her heart rate was very rapid. This occurred around 10:00 p.m.. She thought it was clinical way. She went to sleep. When she woke up heart rate was still elevated along with her blood pressure. She denied any significant chest pain, nausea vomiting. She has seen Cardiology in the past. She has history of mitral valve prolapse, hypertension, history of CVA with stent to the vertebral artery done last year, hypothyroidism and hyperlipidemia. She came to the ER for further evaluation. In the ER patient was found to be in atrial fibrillation with a rate of 140. Patient was given metoprolol IV. After while rhythm went back in to normal rhythm. Patient without palpitations at this time. CBC unremarkable. Chest x- ray unremarkable. Troponin less than 0.02. Sodium 142, potassium 4.2, BUN 25, creatinine 0.87 with a GFR 65. Glucose 94. Patient was admitted for observation to further monitor. When I saw the patient ER, she appeared comfortable. Patient remains in normal sinus rhythm. Allergies Sulfa (Sulfonamide Antibiot Allergy (Uncoded 03/13/18 14:26) Unknown Home medications list reviewed: Yes - Past Medical/Surgical History -: Hypertension -: Hyperlipidemia -: History CVA, stent to vertebral artery, 2018 -: Hypothyroidism -: Depression -: Stent to vertebral artery -: Right knee surgery Psychosocial/ Personal History: Patient is - Family History Father -: Heart disease, Cancer (Prostate cancer) Mother -: Other (see notes) (Dementia) - Social History Smoking Status: Never smoker Alcohol use: Yes CD- Drugs: No Caffeine use: Yes Place of Residence: Home Review of Systems General: As per HPI Eyes: Unremarkable ENT: Unremarkable Respiratory: Unremarkable Cardiovascular: Palpitations, Light Headedness, As per HPI Gastrointestinal: Unremarkable Genitourinary: Unremarkable Musculoskeletal: Unremarkable Integumentary: Unremarkable Neurological: Unremarkable Lymphatics: Unremarkable Physical Examination - Physical Exam General: Alert, In no apparent distress, Oriented x3, Cooperative HEENT: Atraumatic, Normocephalic, PERRLA, Mucous membr. moist/pink Neck: Supple, No Thyromegaly Respiratory: Clear to auscultation bilaterally, Normal air movement Cardiovascular: Normal pulses, Regular rate/rhythm Gastrointestinal: Normal bowel sounds, Soft and benign, Non-distended, No tenderness, No masses, No rebound, No guarding Musculoskeletal: No erythema, No tenderness, No warmth Integumentary: No tenderness/swelling, No erythema, No warmth, No cyanosis Neurological: Normal speech, Normal strength at 5/5 x4 extr, Normal tone, Normal affect - Studies Laboratory Data (last 24 hrs) 01/12/19 06:45: Sodium 142, Potassium 4.2, BUN 25 H, Creatinine 0.87, Glucose 94 , Magnesium 2.1, Total Bilirubin 0.3, AST 49 H, ALT 65, Alkaline Phosphatase 79 01/12/19 06:10: PT 10.2, INR 0.86 01/12/19 06:10: WBC 7.7, Hgb 14.9, Hct 44.2, Plt Count 253 Assessment and Plan - Plan Impression: New onset atrial fibrillation with RVR with conversion to normal sinus rhythm Hypertension Hyperlipidemia History of CVA, stent to the vertebral artery Hypothyroidism Depression Plan: New onset atrial fibrillation with RVR with conversion to normal sinus rhythm: Patient will be admitted for observation. Patient was given metoprolol in the emergency room. Patient now in normal sinus rhythm. Patient remained stable. Will start Lovenox at 1 milligram/kilogram subcu twice daily. Will continue with Plavix due to her history of CVA. Will continue with metoprolol p.o. twice daily. Will review home medications. Will make further adjustments. Case discussed with cardiology who will see the patient later. Will order echocardiogram. Patient will require oral anti coagulation and beta-bubba therapy at discharge. Possible discharge as early as tonight if stable. Continue to monitor telemetry. Continue with cardiac enzymes. Hypertension: Will review home medication. Metoprolol has been initiated. Hyperlipidemia: Continue with statin medication. Will obtain lipid panel. History of CVA, stent to the vertebral artery: Will continue with Plavix. Patient has been seen and followed by neurology. Hypothyroidism: Restart home medication. Will check tsh and free T4. Depression: Continue with medication. Discharge Plan: Home Plan to discharge in: 24 Hours - Advance Directives Does patient have a Living Will: No Does patient have a Durable POA for Healthcare: No - Code Status/Comfort Care Code Status Assessed: Yes (Patient is full code.) Time Spent Managing Pts Care (In Minutes): 55
[2019-01-12] MEDS ORDERED: ACETAMINOPHEN 500 MG TAB PO PRN (11:19)
[2019-01-12] MEDS ORDERED: ONDANSETRON 4 MG/2 ML VIAL IV PRN (11:19)
[2019-01-12] MEDS ORDERED: PNEUMOCOCCAL VACCINE 0.5 ML IMVAC ONE (12:00)
--- NOTE | 2019-01-12 12:03 | EKG ---
Test Date: 2019-01-12 Test Time: 06:02:30 In Service Coordinator: SHANTANU MEASUREMENT RESULTS: Intervals: Rate: 129 MN: QRSD: 144 QT: 330 QTc: 483 Floyd: P: MN: QRS: -65 T: 62 INTERPRETIVE STATEMENTS: Atrial fibrillation with rapid ventricular response with premature ventricular or aberrantly conducted complexes Right bundle branch block Left anterior fascicular block Bifascicular block Abnormal ECG Compared to ECG 03/13/2018 12:10:29 Ventricular premature complex(es) now present Sinus rhythm no longer present First degree AV block no longer present Left ventricular hypertrophy no longer present Bifascicular block still present Electronically Signed On 01-12-19 12:02:17 CDT by Alexis Crawley
[2019-01-12 12:38] LABS: Urine Appearance CLEAR; Urine Bilirubin NEGATIVE (NEG); Urine Blood NEGATIVE (NEG); Urine Color YELLOW; Urine Glucose NEGATIVE (NEG); Urine Protein NEGATIVE (NEG); Urine Specific Gravity 1.015 (1.005-1.030); Urine Urobilinogen 0.2 mg/dL (0.2-1.0)
[2019-01-12 12:41] LABS: Urine Microscopic Reflex NO UMIC
--- NOTE | 2019-01-12 14:38 | ECHO ---
HEIGHT: 5 ft 7 in WEIGHT: 148 lb 0 oz DATE OF STUDY: 01/12/[address]: Terry Cole DO 2-DIMENSIONAL: YES M.MODE: YES DOPPLER: YES COLOR FLOW: YES TDS: NO PORTABLE: NO DEFINITY: NO BUBBLE STUDY: NO DIAGNOSIS: ATRIAL FIBRILLATION CARDIAC HISTORY: CATHERIZATION: NO SURGERY: NO PROSTHETIC VALVE: NO PACEMAKER: NO MEASUREMENTS (cm) DIASTOLIC (NORMALS) SYSTOLIC (NORMALS) IVSd 1.1 (0.6-1.2) LA Diam 3.6 (1.9-4.0) LVEF 64% LVIDd 5.0 (3.5-5.7) LVIDs 3.2 (2.0-3.5) %FS 35% LVPWd 1.0 (0.6-1.2) Ao Diam 3.3 (2.0-3.7) 2 DIMENSIONAL ASSESSMENT: RIGHT ATRIUM: NORMAL LEFT ATRIUM: NORMAL RIGHT VENTRICLE: NORMAL LEFT VENTRICLE: NORMAL TRICUSPID VALVE: NORMAL MITRAL VALVE: NORMAL PULMONIC VALVE: NORMAL AORTIC VALVE: NORMAL PERICARDIAL EFFUSION: NONE AORTIC ROOT: NORMAL LEFT VENTRICULAR WALL MOTION: NORMAL. DOPPLER/COLOR FLOW: TRACE OF MITRAL AND TRICUSPID REGURGITATION. COMMENTS: TRACE OF MITRAL AND TRICUSPID REGURGITATION. NORMAL LEFT VENTRICULAR SIZE AND FUNCTION. NO WALL MOTION ABNORMALITY. NORMAL LEFT ATRIAL SIZE. NO THROMBUS. TECHNOLOGIST: AXEL MURO
--- NOTE | 2019-01-12 15:31 | P.DS ---
Admission Date: 01/12/19 Discharge Date: 01/12/19 Primary Care Provider: Dr. Matthew; Cardiology-Dr. Delatorre Disposition: ROUTINE DISCHARGE Discharge Condition: GOOD Reason for Admission: Palpitations Consultations: Cardiology-Dr. Crawley Procedures: Medical problem list: New onset atrial fibrillation with RVR with conversion to normal sinus rhythm Hypertension Hyperlipidemia History of CVA, stent to the vertebral artery Hypothyroidism Depression Brief History of Present Illness: 63-year-old female presented to the emergency room with palpitations. She reported palpitations starting last night. It felt like her heart rate was very rapid. This occurred around 10:00 p.m.. She thought it was clinical way. She went to sleep. When she woke up heart rate was still elevated along with her blood pressure. She denied any significant chest pain, nausea vomiting. She has seen Cardiology in the past. She has history of mitral valve prolapse, hypertension, history of CVA with stent to the vertebral artery done last year, hypothyroidism and hyperlipidemia. She came to the ER for further evaluation. In the ER patient was found to be in atrial fibrillation with a rate of 140. Patient was given metoprolol IV. After while rhythm went back in to normal rhythm. Patient without palpitations at this time. CBC unremarkable. Chest x- ray unremarkable. Troponin less than 0.02. Sodium 142, potassium 4.2, BUN 25, creatinine 0.87 with a GFR 65. Glucose 94. Patient was admitted for observation to further monitor. When I saw the patient ER, she appeared comfortable. Patient remains in normal sinus rhythm. Hospital Course: Patient presented with palpitations. Patient found to have new onset atrial fibrillation with RVR. Patient was given metoprolol IV in the emergency room. Patient responded to therapy well. Patient converted to sinus rhythm in the emergency room. Patient was admitted for observation. Patient was seen and evaluated by Cardiology. Cardiology discussed the case further with her caretaker grounds. Due to her history of hypertension, hyperlipidemia, history of CVA with stent to the vertebral artery, hypothyroidism and depression, medications have been adjusted. Cardiology has added metoprolol 50 mg XL daily and Xarelto 20 mg daily. Patient will continue with Cozaar 25 mg daily. Plavix has been discontinued and replaced with aspirin 81 mg daily. Patient will follow up with cardiology within 1 week to monitor her progress. Education on chronic anti coagulation therapy-Xarelto and atrial fibrillation will be provided. Patient remains in normal sinus rhythm. Patient with underlying hypertension. Medications have been adjusted. Patient will continue with Cozaar 25 mg daily. Metoprolol XL 50 mg daily has been added. Recommend to monitor blood pressures daily. Further adjustment can be done by her PCP or cardiology. Patient with history of CVA and stent to the vertebral artery last year. Case discussed at length with cardiology. Cardiology discussed the case further with her caretaker grounds. Since the patient will be on chronic anti coagulation therapy, Plavix will be discontinued. Patient will continue with anti coagulation therapy-Xarelto for her atrial fibrillation. Aspirin 81 mg daily will be added. Patient with hyperlipidemia. Patient will continue with Lipitor 40 mg daily. Patient with hypothyroidism. Patient will continue with her medication levothyroxine 75 mcg daily. Patient with depression. Patient will continue with her medication Zoloft 50 mg daily. P Vital Signs/Physical Exam: Temp Pulse Resp BP Pulse Ox 97.6 F 75 20 147/69 H 99 01/12/19 11:00 01/12/19 11:00 01/12/19 11:00 01/12/19 11:00 01/12/19 11:00 General: Alert, In no apparent distress, Oriented x3, Cooperative HEENT: Atraumatic Neck: Supple Respiratory: Clear to auscultation bilaterally, Normal air movement Cardiovascular: Normal pulses, Regular rate/rhythm Gastrointestinal: Normal bowel sounds, Soft and benign, Non-distended, No tenderness, No masses, No rebound, No guarding Musculoskeletal: No erythema, No tenderness, No warmth Integumentary: No tenderness/swelling, No erythema, No warmth, No cyanosis Neurological: Normal speech, Normal strength at 5/5 x4 extr, Normal tone, Normal affect Laboratory Data at Discharge: WBC 7.7 K/uL (4.3-10.9) 01/12/19 06:10 Hgb 14.9 g/dL (12.0-15.0) 01/12/19 06:10 Hct 44.2 % (36.0-45.0) 01/12/19 06:10 Plt Count 253 K/uL (152-406) 01/12/19 06:10 PT 10.2 SECONDS (9.5-12.5) 01/12/19 06:10 INR 0.86 01/12/19 06:10 Sodium 142 mmol/L (136-145) 01/12/19 06:45 Potassium 4.2 mmol/L (3.5-5.1) 01/12/19 06:45 BUN 25 mg/dL (7-18) H 01/12/19 06:45 Creatinine 0.87 mg/dL (0.55-1.3) 01/12/19 06:45 Glucose 94 mg/dL (74-106) 01/12/19 06:45 Magnesium 2.1 mg/dL (1.8-2.4) 01/12/19 06:45 Total Bilirubin 0.3 mg/dL (0.2-1.0) 01/12/19 06:45 AST 49 U/L (15-37) H 01/12/19 06:45 ALT 65 U/L (12-78) 01/12/19 06:45 Alkaline Phosphatase 79 U/L (45-117) 01/12/19 06:45 Troponin I Cancelled 01/12/19 15:00 Home Medications: Aspirin [Aspirin EC 81 MG] 81 mg PO DAILY #30 tablet. 01/12/19 Atorvastatin Calcium 40 mg PO DAILY 01/12/19 Levothyroxine [Synthroid*] 75 mcg PO [id number] 01/12/19 Losartan Potassium [Cozaar] 1 tab PO DAILY 01/12/19 Metoprolol Succinate 50 mg PO DAILY #30 tab.er.24h 01/12/19 Rivaroxaban [Xarelto] 20 mg PO DAILY #30 tab 01/12/19 Sertraline [Zoloft*] 50 mg PO DAILY 01/12/19 New Medications: Aspirin [Aspirin EC 81 MG] 81 mg PO DAILY #30 tablet. Metoprolol Succinate 50 mg PO DAILY #30 tab.er.24h Rivaroxaban [Xarelto] 20 mg PO DAILY #30 tab Patient Discharge Instructions: 1. Recommend to follow up with her PCP within 1 week. 2. Patient presented with palpitations. Patient found to have new onset atrial fibrillation with RVR. Patient was given metoprolol IV in the emergency room. Patient responded to therapy well. Patient converted to sinus rhythm in the emergency room. Patient was admitted for observation. Patient was seen and evaluated by Cardiology. Cardiology discussed the case further with her caretaker grounds. Due to her history of hypertension, hyperlipidemia, history of CVA with stent to the vertebral artery, hypothyroidism and depression , medications have been adjusted. Cardiology has added metoprolol 50 mg XL daily and Xarelto 20 mg daily. Patient will continue with Cozaar 25 mg daily. Plavix has been discontinued and replaced with aspirin 81 mg daily. Patient will follow up with cardiology within 1 week to monitor her progress. Education on chronic anti coagulation therapy-Xarelto and atrial fibrillation will be provided. Patient remains in normal sinus rhythm. 3. Patient with underlying hypertension. Medications have been adjusted. Patient will continue with Cozaar 25 mg daily. Metoprolol XL 50 mg daily has been added. Recommend to monitor blood pressures daily. Further adjustment can be done by her PCP or cardiology. 4. Patient with history of CVA and stent to the vertebral artery last year. Case discussed at length with cardiology. Cardiology discussed the case further with her caretaker grounds. Since the patient will be on chronic anti coagulation therapy, Plavix will be discontinued. Patient will continue with anti coagulation therapy-Xarelto for her atrial fibrillation. Aspirin 81 mg daily will be added. 5. Patient with hyperlipidemia. Patient will continue with Lipitor 40 mg daily. 6. Patient with hypothyroidism. Patient will continue with her medication levothyroxine 75 mcg daily. 7. Patient with depression. Patient will continue with her medication Zoloft 50 mg daily. Diet: AHA Activity: Fall precautions Time spent managing pt's care (in minutes): 55
--- NOTE | 2019-01-12 17:21 | CON ---
Reason For Consultation: New-onset atrial fibrillation. History Of Present Illness: Ms. Ramirez is 63. She is a patient of Dr. Delatorre. Recently had cardia c workup that was negative. She has a history of hypothyroidism, CVA, dyslipidemia, hypertension, an d depression. Came in with a rapid ventricular response, palpitations and was found to have atrial f ibrillation, was given IV beta blockers. She converted automatically to sinus rhythm. An echocardio gram is pending. Thyroid is normal. She denied any PND, orthopnea, pedal edema, or syncope. She de nied any unexplained nausea, vomiting, or diaphoresis. When her heart rate was fast, she had a littl e bit of chest pressure. Past Medical History: As stated above. Allergies: TO SULFA. Review of Systems: Negative. Social History: Negative. Family History: Negative. Medications: Include Synthroid, Plavix, Lipitor, Cozaar, and Zoloft. Physical Examination: General: She is in sinus rhythm. Vital Signs: Stable. Afebrile. HEENT: Negative. Neck: Supple with no bruit. Chest: Clear to auscultation and percussion. Cardiac: Revealed a regular rhythm and rate. No murmurs, gallops, or rubs. Abdomen: Benign. Extremities: Revealed no clubbing, cyanosis, or edema. Diagnostic Data: Except for the BNP of 322, and her initial EKG being in atrial fibrillation were al l normal. Impression And Plan: New-onset atrial fibrillation in a patient with history of stroke on Plavix. I still think it would be reasonable to put her on an anticoagulant, preferably Xarelto or Eliquis. C ontinue the Plavix. No aspirin. I think we need to keep her on beta bubba. Check another echo, m sheree sure there is no new or thrombus. She can certainly follow up with Dr. Delatorre after that. Her other problems including depression, hypothyroidism, dyslipidemia and hypertension seem to be stable at this point. From my standpoint, if her echocardiogram is normal and she remains in sinus rhythm, she can probably go home today. I will discuss the case with Dr. Cole. She can go home on her pre sent regimen plus an anticoagulant plus metoprolol and follow up with Dr. Delatorre in the near future. BETTY/MODL Voice ID: [id number] Report ID: [id number]
[2019-01-12] MEDS ORDERED: ENOXAPARIN 80 MG/0.8 ML SQ SCH (18:00)
[2019-01-12] MEDS ORDERED: ATORVASTATIN 80 MG TAB PO SCH (21:00)
[2019-01-12] MEDS ORDERED: METOPROLOL TAR 50 MG TAB PO SCH (21:00)
[2019-01-13] MEDS ORDERED: LEVOTHYROXINE SOD 0.075 MG TAB PO SCH (06:30)
[2019-01-13] MEDS ORDERED: SERTRALINE HCL 50 MG TAB PO SCH (09:00)
[2019-01-13] MEDS ORDERED: CLOPIDOGREL 75 MG TABLET PO SCH (09:00)
== END 2019-01-12 15:36 | disposition home or self-care (01) ==
LOC: ER 05:49 → ERHOLD 09:10 → 2ND 10:36
PROVIDERS: ADMIT Family Medicine; ATTEND Family Medicine
DX: I48.2 Chronic atrial fibrillation (principal); I10 Essential (primary) hypertension; E78.5 Hyperlipidemia, unspecified; E03.9 Hypothyroidism, unspecified; F32.9 Major depressive disorder, single episode, unspecified; I08.1 Rheumatic disorders of both mitral and tricuspid valves; I45.2 Bifascicular block; Z79.02 Long term (current) use of antithrombotics/antiplatelets; Z79.899 Other long term (current) drug therapy; Z86.73 Personal history of transient ischemic attack (TIA), and cerebral infarction without residual deficits
CPT/HCPCS: 96361; 93005; 93306; 85025; 80048; 36415; 83735; 85610; 80076; 84443; 81003; 84484; 83880; 71045; 96372; 96374; 99285; J1650; J7030; G0378 ×2